=== PATIENT | female | born 1955 | race Caucasian/White ===

== ENCOUNTER 2017-10-07 10:26 | Emergency (ER) | payer OTHER ==
[2017-10-07] MEDS ORDERED: TORAdol 30 mg Injection IM ONE (10:44)
--- NOTE | 2017-10-07 10:51 | ERPHSYRPT ---
- History of Present Illness Time Seen by Provider: 10/07/17 10:41 Source: patient Exam Limitations: no limitations Patient Subjective Stated Complaint: PT REPORTS FALLING THIS AM ONTO HER KNEES WHILE TRYING TO WALK HER SONS DOG-REPORTS PAIN TO LEFT HIP Triage Nursing Assessment: PT PINK WARM ET [id number] TO ED ROOM-NO OBVIOUS DEFORMITY-PULSES PRESENT ET STRONG-EXTREMITY PINK WARM ET DRY Physician History: 61-year-old white female arrives with complaint of pain in the left posterior lateral hip symptoms since this morning. Patient states that she fell wall walking the dog around 8:00. She states that she felt to her knee. Past medical history includes asthma and arthritis. Past surgical history includes hysterectomy. Social history positive for tobacco use. Timing/Duration: today Occured at: home Context: fall Quality: aching Hip Pain Location: hip (L), pelvis Severity of Pain-Max: moderate Severity of Pain-Current: moderate Modifying Factors: Improves With: nothing Symptoms prior to fall: none Associated Symptoms: No fatigue, No fever, No groin pain, No insomnia, No lumps , No muscle aches, No pain radiating to knees, No trouble walking Allergies/Adverse Reactions: No Known Drug Allergies Allergy (Unverified 10/07/17 10:40) Hx Tetanus, Diphtheria Vaccination/Date Given: No Hx Influenza Vaccination/Date Given: No Hx Pneumococcal Vaccination/Date Given: No Immunizations Up to Date: Yes - Review of Systems Constitutional: No Fever, No Chills Eyes: No Symptoms Ears, Nose, & Throat: No Symptoms Respiratory: No Cough, No Dyspnea Cardiac: No Chest Pain, No Edema, No Syncope Abdominal/Gastrointestinal: No Abdominal Pain, No Nausea, No Vomiting, No Diarrhea Genitourinary Symptoms: No Dysuria Musculoskeletal: Fall, Other (left hip pain laterally and posteriorly) Skin: No Rash Neurological: No Dizziness, No Focal Weakness, No Sensory Changes Psychological: No Symptoms Endocrine: No Symptoms All Other Systems: Reviewed and Negative - Past Medical History Pertinent Past Medical History: Yes Respiratory History: Asthma Musculoskeletal History: Arthritis - Past Surgical History Past Surgical History: Yes Female Surgical History: Hysterectomy - Social History Smoking Status: Current every day smoker How long have you smoked: YRS Exposure to second hand smoke: Yes Drug Use: none Patient Lives Alone: No - Female History Hx Now: No - Nursing Vital Signs Nursing Vital Signs: Initial Vital Signs Temperature 97.5 F 10/07/17 10:41 Pulse Rate 98 H 10/07/17 10:41 Respiratory Rate 20 10/07/17 10:41 Blood Pressure 145/80 10/07/17 10:41 O2 Sat by Pulse Oximetry 98 10/07/17 10:41 Pain Scale Pain Intensity 10 - Physical Exam General Appearance: mild distress Eye Exam: PERRL/EOMI Ears, Nose, Throat Exam: normal ENT inspection, moist mucous membranes Neck Exam: normal inspection, non-tender, supple Respiratory Exam: normal breath sounds, lungs clear, No chest tenderness, No respiratory distress Cardiovascular Exam: regular rate/rhythm, No edema Gastrointestinal Exam: soft, No tenderness, No distention, No guarding Back Exam: normal range of motion, other (mild tenderness with palpation left low back just superior to the hip), No vertebral tenderness Extremity Exam: other (pain with palpation and movement left lateral and posterior hip. Full range of motion all extremities) Peripheral Pulses: dorsalis-pedis (R): 2+, dorsalis-pedis (L): 2+ Neurologic Exam: alert, oriented x 3, cooperative, bilingual operator II-XII nml as tested, sensation nml, No motor deficits Skin Exam: normal color, warm, dry, No rash SpO2 Interpretation: normal (98%) SpO2: 98 Oxygen Delivery: Room Air - Course Nursing assessment & vital signs reviewed: Yes - Radiology Exams Left Hip X-ray Interpretation: Discussed w/ radiologist, Negative, No Fracture, No Subluxation, Other (osteopenia and advanced degenerative left hip degenerative changes) Ordered Tests: Active Orders 24 hr Category Date Time Status HIP UNI (2V) INCL PEL IF DONE Stat Exams 10/07/17 10:44 Completed Medication Summary Discontinued Medications Generic Name Dose Route Start Last Admin Trade Name Lorneq PRN Reason Stop Dose Admin Ketorolac Tromethamine 60 mg 10/07/17 10:44 10/07/17 10:56 Toradol 30 Mg Injection IM 10/07/17 10:45 60 mg STAT ONE Administration Ketorolac Tromethamine Confirm 10/07/17 10:53 Toradol 30 Mg Injection Administered 10/07/17 10:54 Dose 60 mg .ROUTE .STK-MED ONE - Progress Progress: unchanged, improved Progress Note: 10/07/17 10:48 61-year-old white female arrives with complaint of pain left posterior lateral hip symptoms since this morning after patient fell while walking the dog. Patient has mild tenderness posterior lateral hip on the left. Patient is from [place]. Inspect is reviewed patient has received multiple prescriptions from Dr. Albarado in [place] for pain medication she is also received several from [facility]. Also has received a recent prescriptions from Dr. Gutierrez in [facility] not large amounts . Last prescription from [facility] and was September 24 - Departure Time of Disposition: 11:38 Departure Disposition: Home Clinical Impression: Left hip pain Accidental fall Qualifiers: Encounter type: initial encounter Qualified Code(s): W19.XXXA - Unspecified fall, initial encounter Condition: Fair Critical Care Time: No Referrals: DOCTOR,NO FAMILY [Primary Care Provider] - Additional Instructions: Return home. Naprosyn 500 mg orally twice a day with food as needed for pain #20. Ice to left hip 24-48 hours. Follow-up with your family doctor. Return for acute distress or for severe symptoms. Prescriptions: Naproxen 500 mg [Naprosyn 500 MG] 500 mg PO BID #20 tablet
[2017-10-07] MEDS ORDERED: TORAdol 30 mg Injection ONE (10:53)
[2017-10-07 11:20] VITALS: BP 132/75; PULSE 78
--- NOTE | 2017-10-07 11:30 | XRAY ---
Indication: Pain following fall. Arthritis. Comparison: None AP pelvis and 2 views of the left hip demonstrates osteopenia and advanced left hip degenerative changes. No acute fracture, dislocation, or soft tissue abnormalities.
[2017-10-07 11:36] VITALS: O2SAT 98
== END 2017-10-07 12:05 | disposition home or self-care (01) ==
LOC: ED 10:26
DX: M25.552 Pain in left hip (principal); W19.XXXA Unspecified fall, initial encounter; M19.90 Unspecified osteoarthritis, unspecified site; Z72.0 Tobacco use; J45.909 Unspecified asthma, uncomplicated
CPT/HCPCS: 73502; 96372; 99284; J1885